=== PATIENT | male | born 1955 | race Caucasian/White ===

== ENCOUNTER 2017-08-16 09:37 | Emergency (ER) | payer OTHER ==
[~2017-08-16] VITALS: Ht 177.8 cm; Wt 127.0 kg
[~2017-08-16 09:37] MED LIST: ATORVASTATIN CA40 MG PO; COUMADIN10 MG PO; ENOXAPARIN120 MG/0.8 SUB-Q; LOVASTATIN40 MG PO; NORCO 7.5-3251 EACH PO; ROBAXIN-750750 MG PO; VITAMIN D-32000 UNIT PO; WARFARIN SODIUM5 MG PO
[2017-08-16] MEDS ORDERED: LOVENOX120 MG SUB-Q (10:35)
== END 2017-08-16 11:09 | disposition home or self-care (01) ==
LOC: ED 09:37
DX: I82.431 Acute embolism and thrombosis of right popliteal vein (principal); Z79.01 Long term (current) use of anticoagulants; Z79.899 Other long term (current) drug therapy
CPT/HCPCS: 93971; 96372; 99284; J1650

== ENCOUNTER 2018-08-19 18:21 | Emergency (ER) | payer OTHER ==
[~2018-08-19] VITALS: Ht 177.8 cm; Wt 125.2 kg
[~2018-08-19 18:21] MED LIST changes: +LOVENOX120 MG SUB-Q
--- OUTSIDE RECORDS SUMMARY | 2018-08-19 18:24 | XMS ---
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 E.D. VISIT COUNT (12 MO.) 1 ARACELI Desai TOTAL 1 NOTE: Visits indicate total known visits. ED/UCC VISIT TRACKING (12 MO.) 08/19/2018 18:22 ARACELI Schwartz [place] TYPE: Emergency COMPLAINT: - POST OP PROBLEM, EXTREMITY PAIN INPATIENT VISIT TRACKING (12 MO.) 08/15/2018 10:25 [facility] TYPE: Orthopedic DIAGNOSES: 0. 02035 LEFT TOTAL KNEE ARTHROPLASTY [email or web address]
[2018-08-19] MEDS ORDERED: ELIQUIS5 MG PO (18:45)
== END 2018-08-19 20:35 | disposition home or self-care (01) ==
LOC: ED 18:21
DX: R29.898 Other symptoms and signs involving the musculoskeletal system (principal); Z79.899 Other long term (current) drug therapy
CPT/HCPCS: 93971; 99285-25

== ENCOUNTER 2020-04-15 06:33 | Day surgery (SDC) | payer OTHER ==
[~2020-04-15] VITALS: Ht 177.8 cm; Wt 118.8 kg
[~2020-04-15 06:33] MED LIST changes: +ELIQUIS5 MG PO
--- NOTE | 2020-04-15 08:10 | NUR ---
04/15/20 0810 Sheela Guallpa 0805- PT TO PACUT IN LL POSITION. EYES OPEN AND ASKING/ANSWERING QUESTIONS APPROPRIATELY. BREATHING EASY AND UNLABORED. SPO2 >95% ON 3 L O2 VIA NC. ETCO2 48. PT EDUCATED ON POC AND ENCOURAGED TO PASS GAS.
--- NOTE | 2020-04-15 13:15 | NUR ---
PT TAKEN FOR SCOPE, DIAMOND WAITING. CONNECTED WITH HER, ALL QUESTIONS ASKED WERE ANSWERED. GAVE BLESSING WILL FOLLOW
--- NOTE | 2020-04-16 06:21 | OR ---
[facility] [address], [place] [address] Signed DATE OF OPERATION: 04/15/2020 SURGEON: Patience Maciel MD PREOPERATIVE DIAGNOSES: 1. Hyperplastic rectal polyps in 2010 at age 54. 2. Maternal grandfather with either stomach or colon cancer in his late 50s or early 60s. POSTOPERATIVE DIAGNOSES: 1. 4 mm polyps x2 at 18 cm (rectosigmoid junction). 2. 4 mm polyps x2, cecum. 3. Minimal sigmoid diverticulosis. 4. Enlarged prostate. PROCEDURE: Colonoscopy with hot biopsy. ESTIMATED BLOOD LOSS: None. INDICATIONS: Andrew is a 64-year-old gentleman asked to see me for a followup colonoscopy. He told me today that his maternal grandfather had either stomach or colon cancer somewhere in his late 50s or early 60s. His brother feels pretty confidently it was colon cancer. Andrew himself had hyperplastic rectal polyps removed back in 2009 at the age of 54. In the meantime, he seems to be doing fine without any lower GI complaints. In the office, I had given him a pamphlet on colonoscopy. He understands the nature of the test along with the risks including, but not limited to gas bloating, crampy abdominal pain, bleeding, perforation requiring surgery, and missed diagnosis. He also recalls the need for IV conscious sedation. We did have him hold his Eliquis prior to the procedure. In that regard, he did receive heparin preoperatively. DESCRIPTION OF PROCEDURE: Andrew was taken into our endoscopy suite and placed in the left lateral decubitus position. He did receive preoperative heparin along with antibiotics because of his history of a DVT and his bilateral knee replacements. He was given a total of 10 mg of Versed and 200 mcg of fentanyl to cover the case. Even then he woke up several times during the procedure as well as at the end of the procedure. Fortunately, it is technically easy to advance the scope for Andrew. Nevertheless, he seemed to do well. A digital rectal exam had been done and he does have an enlarged moderately indurated Electronically Signed By: PATIENCE MACIEL MD 04/16/20 0621 PATIENT NAME: ANDREW PHILLIPS OPERATIVE REPORT DATE OF : 57 REPORT #: [id number] PHYSICIAN: PATIENCE MACIEL MD PCP: WILLIS LANDAVERDE MD REPORT IS CONFIDENTIAL AND NOT TO BE RELEASED WITHOUT AUTHORIZATION [facility] [address], [place] [address] Signed prostate gland. No dominant nodules. The adult colonoscope had been introduced and advanced into the cecum under direct visualization of camera. His prep was quite excellent. It took some extra sedation and abdominal compression in order to advance the scope. The above-mentioned polyps were easily removed with the help of hot biopsy forceps. The scope had been slowly withdrawn and we did see some diverticula on this occasion. They were moderate in size, very few in number, and in the sigmoid colon. Once down in the rectum, the scope had been retroflexed and he has little to no internal hemorrhoid tissue. After this, the gas was suctioned out and the colonoscope removed. Overall, Andrew tolerated the procedure quite well. RECOMMENDATIONS: I will see Andrew back in my office in 7 to 14 days to review his results. If these are hyperplastic polyps, he will probably stay on the 10-year rotation. MD JIMMY Olivo/MODL /[id number] cc: MD Willis Olivo MD Copies: PATIENCE MACIEL MD, LOHITH VEERAPPA MD ~ Electronically Signed By: PATIENCE MACIEL MD 04/16/20 0621 PATIENT NAME: ANDREW PHILLIPS OPERATIVE REPORT DATE OF : 57 REPORT #: [id number] PHYSICIAN: PATIENCE MACIEL MD PCP: WILLIS LANDAVERDE MD REPORT IS CONFIDENTIAL AND NOT TO BE RELEASED WITHOUT AUTHORIZATION
--- NOTE | 2020-04-16 10:56 | PATH ---
[facility] [address] [facility] [place] [place] [address] Signed SPECIMEN(S): A COLON POLYP AT 18 CM SPECIMEN(S): B CECAL POLYP SPECIMEN SOURCE: A. COLON POLYP AT 18 CM B. CECAL POLYP CLINICAL HISTORY: Polyps, family history of ca. Dx: Polyps, sigmoid divertic. Colonoscopy. MICROSCOPIC DESCRIPTION: Histologic sections of all submitted blocks are examined by light microscopy. These findings, together with the gross examination, support the pathologic diagnosis. FINAL PATHOLOGIC DIAGNOSIS: A. Colon, polyp at 18 cm, polypectomy: - Hyperplastic polyp. - Negative for dysplasia or malignancy. B. Colon, cecum, polyp, polypectomy: - Tubular adenoma. - Negative for high-grade dysplasia or malignancy. NAL:cml:C2NR GROSS DESCRIPTION: Two specimens are received in two containers, labeled "RH." A. The specimen, labeled "RH," and designated on the requisition "colon polypectomy at 18 cm," is received in formalin and consists of two fragments of pink-monahan tissue (0.5 x 0.3 x 0.3 cm in aggregate). The specimen is submitted entirely in cassette (A1). B. The specimen, labeled "RH," and designated on the requisition "cecum polypectomy," is received in formalin and consists of two fragments of pink-monahan tissue (0.4 x 0.3 x 0.3 cm in aggregate). The specimen is submitted entirely in cassette (B1). AC (under the direct supervision of a pathologist) The Gross Description was prepared using a voice recognition system. The report was reviewed for accuracy; however, sound-alike word errors, addition and/or deletions may occur. If there is any question about this report, please contact Client Services. PERFORMING LABORATORY: PATIENT NAME: ANDREW PHILLIPS PATHOLOGY DATE OF : 57 REPORT #: [id number] PHYSICIAN: SCOTT ANDRADE PCP: WILLIS LANDAVERDE MD REPORT IS CONFIDENTIAL AND NOT TO BE RELEASED WITHOUT AUTHORIZATION [facility] [address] [place] [address] Signed The technical component was performed by [employer] [facility], [address] [place] [address] (Industrial Roof Plumber: Sowmya Meeks MD; CLIA# [id number]). Professional interpretation [facility], [address] [place] [id number] (CLIA# [id number]). Diagnostician: Azalea Noland MD Pathologist Electronically Signed 04/16/2020 Copies: ~ PATIENT NAME: ANDREW PHILLIPS PATHOLOGY DATE OF : 57 REPORT #: [id number] PHYSICIAN: SCOTT ANDRADE PCP: WILLIS LANDAVERDE MD REPORT IS CONFIDENTIAL AND NOT TO BE RELEASED WITHOUT AUTHORIZATION
== END 2020-04-15 08:50 | disposition home or self-care (01) ==
LOC: DS 06:33 → OPS 06:33 → DS 06:45 → OPS 08:50
PROVIDERS: ATTEND Colon & Rectal Surgery
PROC: 0DBE8ZZ Excision of Large Intestine, Via Natural or Artificial Opening Endoscopic (ICD-10-PCS; 2020-04-15)
PROC: 0DBH8ZZ Excision of Cecum, Via Natural or Artificial Opening Endoscopic (ICD-10-PCS; principal; 2020-04-15 06:45)
DX: D12.0 Benign neoplasm of cecum (principal); K57.30 Diverticulosis of large intestine without perforation or abscess without bleeding; N40.0 Benign prostatic hyperplasia without lower urinary tract symptoms; E78.5 Hyperlipidemia, unspecified; E55.9 Vitamin D deficiency, unspecified; G47.33 Obstructive sleep apnea (adult) (pediatric); Z86.010 Personal history of colon polyps; Z80.0 Family history of malignant neoplasm of digestive organs; Z79.899 Other long term (current) drug therapy; Z79.01 Long term (current) use of anticoagulants; Z86.718 Personal history of other venous thrombosis and embolism
CPT/HCPCS: 99153; G0500; J0690; J1644; J2250; J3010; J7121

== ENCOUNTER 2020-08-08 09:49 | Emergency (ER) | payer OTHER ==
[~2020-08-08] VITALS: Ht 177.8 cm; Wt 125.2 kg
[2020-08-08] MEDS ORDERED: HYDROCODON-ACE1 EA11 PO (13:54)
--- NOTE | 2020-08-08 15:48 | EKG ---
[facility] [address] [facility] [place], [place] [address] Signed Sinus rhythm with 1st degree AV block Otherwise normal ECG No previous ECGs available Confirmed by PHONG DICKSON DO ([id number]) on 08/08/2020 3:48:51 PM Electronically Signed By: PHONG DICKSON DO 08/08/20 1548 PATIENT NAME: ANDREW PHILLIPS Electrocardiogram DATE OF : 57 PHYSICIAN: PHONG DICKSON DO REPORT #: [id number] REPORT IS CONFIDENTIAL AND NOT TO BE RELEASED WITHOUT AUTHORIZATION
== END 2020-08-08 14:04 | disposition home or self-care (01) ==
LOC: ED 09:49
DX: R09.1 Pleurisy (principal); G47.30 Sleep apnea, unspecified; Z79.899 Other long term (current) drug therapy
CPT/HCPCS: 71046; 80053; 84484; 85025; 85379; 93005; 93010; 99285-25; A9270

== ENCOUNTER 2022-06-23 11:53 | Emergency (ER) | payer OTHER ==
[~2022-06-23] VITALS: Ht 177.8 cm; Wt 125.2 kg
[~2022-06-23 11:53] MED LIST changes: +HYDROCODON-ACE1 EA11 PO
[2022-06-23] MEDS ORDERED: CYCLOBENZAPRINE5 MG PO (12:12)
[2022-06-23] MEDS ORDERED: DULOXETINE HCL30 MG PO (12:12)
[2022-06-23] MEDS ORDERED: LIDODERM1 EACH TOP (13:30)
--- NOTE | 2022-06-23 17:54 | EKG ---
[facility] [address] [facility] [place] [address] Signed Sinus rhythm with 1st degree AV block Otherwise normal ECG When compared with ECG of 08-AUG-2020 09:57, Nonspecific T wave abnormality no longer evident in Anterior leads Confirmed by TYSON SELBY MD ([id number]) on 06/23/2022 5:54:21 PM Electronically Signed By: TYSON SELBY MD 06/23/22 1754 PATIENT NAME: ANDREW PHILLIPS LAINE Electrocardiogram DATE OF : 57 PHYSICIAN: TYSON SELBY MD REPORT #: [id number] REPORT IS CONFIDENTIAL AND NOT TO BE RELEASED WITHOUT AUTHORIZATION
== END 2022-06-23 14:21 | disposition home or self-care (01) ==
LOC: ED 11:53
DX: R07.1 Chest pain on breathing (principal); R07.89 Other chest pain; G47.30 Sleep apnea, unspecified; Z79.899 Other long term (current) drug therapy; Z79.01 Long term (current) use of anticoagulants; Z86.711 Personal history of pulmonary embolism
CPT/HCPCS: 36415; 71045; 80053; 83735; 84484; 85025; 85610; 87502; 93005; 93010; 99285-25; U0003

== ENCOUNTER 2025-05-05 14:31 | Inpatient (IN) | payer MEDICARE, OTHER ==
[~2025-05-05] VITALS: Ht 177.8 cm; Wt 112.4 kg
[~2025-05-05 14:31] MED LIST changes: +CYCLOBENZAPRINE5 MG PO; +DULOXETINE HCL30 MG PO; +LIDODERM1 EACH TOP; +MECLIZINE HCL25 MG PO
[2025-05-05 15:43] LABS: BASOPHILS 0.7 % (0.2-1.2); EOSINOPHILS 1.1 % (0.8-7.0); LYMPHOCYTES 27.3 % (21.8-53.1); MCH 30.5 PG (25.7-32.2); MCHC 34.6 g/dL (32.3-36.5); MCV 88.4 fL (79.0-92.2); MONOCYTES 5.9 % (5.3-12.2); NEUTROPHILS 64.6 % (34.0-67.9); RBC 5.50 M/uL (4.63-6.08)
[2025-05-05] MEDS ORDERED: SODIUM CHLORIDE 0.9% 1,000 ML IV ONE (15:45)
[2025-05-05] MEDS ORDERED: HYDROmorphone HCL 1 MG/ML SYR IV ONE ×3 (15:45→17:30)
[2025-05-05 15:56] LABS: ALT (SGPT) 28.0 U/L (14-59); AST (SGOT) 17.0 U/L (15-37); GLOMERULAR FILTRATION RATE,EST 83.0 mL/min (>60); PROTEIN, TOTAL 7.2 g/dL (6.4-8.2); UREA NITROGEN 9.0 mg/dL (7-18)
[2025-05-05] MEDS ORDERED: LIDOCAINE 2% VISCOUS 6 ML SYR TOP ONE (17:15)
[2025-05-05 17:17] LABS: BLOOD/HGB, URINE NEGATIVE (Negative); KETONE, URINE SMALL (Negative); LEUK ESTERASE, URINE NEGATIVE (negative); NITRITE, URINE NEGATIVE (negative)
[2025-05-05] MEDS ORDERED: HYDROmorphone HCL 1 MG/ML SYR IV PRN (18:00)
[2025-05-05] MEDS ORDERED: ACETAMINOPHEN 325 MG TAB PO PRN (18:00)
[2025-05-05] MEDS ORDERED: LACTATED RINGER'S 1,000 ML IV SCH (18:00)
[2025-05-05 18:42] VITALS: BP 156/80
--- NOTE | 2025-05-05 18:53 | NUR ---
THIS RN TO ER, VERBAL REPORT RECEIVED FROM FLOR SENIOR. THIS RN ESCORTS PT FROM ER TO MED-SURG ROOM 113 AT 1835, PT ARRIVES PER BED, TRANSFERS SELF TO BED WITH STEADY GAIT. PT THEN WALKS TO TOILET VOIDS, UNMEASURED. PT BACK TO BED, ORIENTED TO ROOM, CALL LIGHT, BED AND PHONE. VSS. VISITORS X2 AT BEDSIDE. NG IN PLACE TO LIWS. NO REQUESTS AT THIS TIME.
--- NOTE | 2025-05-05 19:28 | NUR ---
RECEIVED REPORT FROM FLOR YANCEY. PATIENT SITTING SEMIFOWLERS IN BED, STATES HE IS COMFORTABLE. RESPIRATIONS EVEN AND UNLABORED. DENIES ANY NEEDS, CALL LIGHT IN REACH
[2025-05-05 20:03] VITALS: BP 135/76
[2025-05-05 20:04] VITALS: BP 135/76
--- NOTE | 2025-05-05 20:06 | NUR ---
IN ROOM TO ASSESS PATIENT, VS OBTAINED AND RECORDED. PATIENT DENIES PAIN, STATES ABD DISTENSION IS MUCH IMPROVED AND HE IS PASSING GAS. BOWEL TONES ARE ACTIVE. PATIENT DENIES ANY FURTHER NEEDS, RESPIRATIONS EVEN AND UNLABORED. CALL LIGHT IN REACH
[2025-05-05] MEDS ORDERED: ENOXAPARIN SODIUM 40 MG/0.4 ML SYR SUB-Q SCH (21:00)
--- NOTE | 2025-05-05 21:06 | NUR ---
SCHEDULED MEDICATION GIVEN TO PATIENT PER ORDER. IV FLUIDS STARTED PER ORDER. PATIENT UP TO RESTROOM TO VOID WITH STABLE GAIT. BACK TO BED WITHOUT DIFFICULTY, NG TUBE SUCTION ON LIWS. PATIENT DENIES PAIN, AT BEDSIDE. DENIES ANY NEEDS, CALL LIGHT IN REACH
--- NOTE | 2025-05-05 22:06 | NUR ---
TC WITH DR. LANE. INFORMED OF PATIENT THROAT DISCOMFORT D/T NG TUBE. PROVIDER STATES OKAY TO HAVE ICE CHIPS FOR COMFORT, AND SPRAY FOR SORE THROAT.
[2025-05-05] MEDS ORDERED: phenoL 177 ML SPRAY MT PRN (22:15)
--- NOTE | 2025-05-05 22:57 | NUR ---
ROUNDED ON PATIENT, PATIENT REPORTING THROAT DISCOMFORT, PRN MEDICATION GIVEN PER ORDER. DENIES FURTHER NEEDS, IVF CONTINUING TO INFUSE PER ORDER. NO FURTHER NEDS, CALL [facility] IN REACH
[2025-05-06] VITALS (11 sets, daily range): BP systolic 117–133; BP diastolic 73–81
--- NOTE | 2025-05-06 01:39 | NUR ---
ROUNDED ON PATIENT, VS OBTAINED AND RECORDED. GIVEN PRN MEDICATION FOR THROAT PAIN, OUTPUT DOCUMENTED. PATIENT UP TO RESTROOM WITH SBA, BACK TO BED WITHOUT DIFFICULTY. NG TUBE ON LIWS. IVF CONTINUING TO INFUSE WITHOUT DIFFICULTY PER ORDER. NO FURTHER NEEDS, CALL LIGHT IN REACH
--- NOTE | 2025-05-06 04:09 | NUR ---
ROUNDED ON PATIENT, PATIENT RESTING WITH EYES CLOSED, RESPIRATIONS EVEN AND UNLABORED. CPOX AT BEDSIDE. NG TUBE IN PLACE, LIWS. NO NEEDS, CALL LIGHT IN REACH
[2025-05-06 05:16] LABS: BASOPHILS 0.6 % (0.2-1.2); EOSINOPHILS 1.6 % (0.8-7.0); LYMPHOCYTES 31.1 % (21.8-53.1); MCH 30.8 PG (25.7-32.2); MCHC 34.4 g/dL (32.3-36.5); MCV 89.3 fL (79.0-92.2); MONOCYTES 6.0 % (5.3-12.2); NEUTROPHILS 60.4 % (34.0-67.9); RBC 5.04 M/uL (4.63-6.08)
[2025-05-06 05:25] LABS: GLOMERULAR FILTRATION RATE,EST 88.0 mL/min (>60); UREA NITROGEN 8.0 mg/dL (7-18)
--- NOTE | 2025-05-06 05:34 | NUR ---
VS OBTAINED AND RECORDED. INTAKE AND OUTPUT DOCUMENTED. PATIENT UP TO RESTROOM TO VOID, BACK TO BED WITHOUT DIFFICULTY. BOWEL TONES AUSCULTATED, ACTIVE BOWEL TONES THROUGHOUT, DENIES TENDERNESS. NG TUBE IN PLACE, LIWS. IVF CONTINUING TO INFUSE WITHOUT DIFFICULTY. NO FURTHER NEEDS, CALL LIGHT IN REACH
--- NOTE | 2025-05-06 06:49 | NUR ---
NEW IVF BAG HUNG PER ORDER. INFUSING WITHOUT DIFFICULTY. PATIENT RESTING IN BED, RESPIRATIONS EVEN AND UNLABORED. NO NEEDS, CALL LIGHT IN REACH
[2025-05-06] MEDS ORDERED: ZEPBOUND10 MG/0.5 SUB-Q (07:23)
[2025-05-06] MEDS ORDERED: ATORVASTATIN CA20 MG PO (07:23)
--- NOTE | 2025-05-06 07:42 | NUR ---
REPORT RECEIVED FROM FLOR BRODERICK. PATIENT IN BED, EYES CLOSED, CHEST RISE EVEN AND UNLABORED. SPOKE WITH MD AUGUSTINE. VERBAL ORDERS RECEIVED TO CLAMP NG TUBE AND REMOVE 4 HOURS AFTER CLAMPING IF PT TOLERATES WELL. MAINTAIN DIET NPO WITH ICE CHIPS FOR COMFORT. NO FURTHER ORDERS AT THIS TIME. CALL LIGHT AND PERSONAL BELONGINGS IN REACH OF PATIENT.
--- NOTE | 2025-05-06 07:50 | NUR ---
NG TUBE CLAMPED PER MD ORDER. PATIENT IN BED, CALL LIGHT AND PERSONAL BELONGINGS IN REACH. PATIENT EDUCATION PROVIDED ON CHANGES TO CARE PLAN REGARDING MD VERBAL ORDER. PATIENT VERBALIZED UNDERSTANDING AND DENIES QUESTIONS OR CONCERNS AT THIS TIME.
--- NOTE | 2025-05-06 09:54 | NUR ---
PATIENT IN BED, DENIES ABDOMINAL TENDERNESS WITH PALPATION, ABDOMEN NON-DISTENDED, BOEWL TONES HYPOACTIVE. MEDICATIONS ADMINISTERED. CALL LIGHT AND PERSONAL BELONGINGS IN REACH. AT BEDSIDE.
--- NOTE | 2025-05-06 09:55 | EKG ---
[facility] [address] [facility] [place] [address] Signed Sinus rhythm with 1st degree AV block Otherwise normal ECG When compared with ECG of 19-AUG-2023 16:44, No significant change was found Confirmed by Mark Lane DO ([id number]) on 05/06/2025 9:55:24 AM Electronically Signed By: MARK LANE DO 05/06/25 0955 PATIENT NAME: ANDREW PHILLIPS LAINE Electrocardiogram DATE OF : 57 PHYSICIAN: MARK LANE DO REPORT #: [id number] REPORT IS CONFIDENTIAL AND NOT TO BE RELEASED WITHOUT AUTHORIZATION
--- NOTE | 2025-05-06 10:18 | NUR ---
PATIENT IN BED AT THIS TIME. VITALS AND I&O'S DONE AND CHARTED. PATIENT DID AM CARE AND ORAL CARE AT SINK. CALL LIGHT IN REACH. NO FURTHER NEEDS AT THIS TIME.
--- NOTE | 2025-05-06 10:26 | NUR ---
UR CLINICAL REVIEW: [facility] [facility] [place]BO WITH NEED FOR NG, IVF AND IV MEDS [facility] INPT 05/05/25 @ 0193 ORDER MATCHES REG CLINICALS FAXED TO [facility] FOR AUTH REVIEW DISCHARGE TO HOME WITH FAMILY WHEN STABLE 05/07/25 DC REVIEW
--- NOTE | 2025-05-06 10:53 | NUR ---
PATIENT IN BED, CALL LIGHT AND PERSONAL BELONGINGS IN REACH. ASSESMENT COMPLETE. AT BEDSIDE. PATIENT DENIES CONCERNS.
--- NOTE | 2025-05-06 11:04 | NUR ---
PATIENT IN BED, CALL LIGHT IN REACH. PATIENT PROVIDED WITH ICE CHIPS.
--- NOTE | 2025-05-06 11:05 | NUR ---
INTO SEE PATIENT. PATIENT PERSONAL HEALTH INFORMATION REVIEWED. PATIENT LIVES WITH AT HOME. COUPLE STEPS INTO THE HOUSE. DENIES DIFFCULTY DOING THEM. PATIENT DOES NOT USE WALKER, CANE OR WHEELCHAIR. CPAP FROM [facility] AT HOME. PATIENT DRIVES. DENIES ANY DIFFCULTY PAYING UTILITES OR OBTAINING FOOD. WILL DRIVE HOME WHEN MEDICALLY CLEARED. NO FUTHER CM NEEDS.
[2025-05-06] MEDS ORDERED: PHARMACY RENAL DOSE ADJUSTMENT 1 DOSE MISC PO SCH (12:00)
--- NOTE | 2025-05-06 12:01 | NUR ---
PATIENT IN BED, AT BEDSIDE. GI ASSESMENT COMPLETE. PATIENT REPORTS ABDOMEN IS NON-DISTENDED. NON-TENDER AND SOFT WITH ABDOMINAL PALPATION. BOWEL TONES ACTIVE. PATIENT DENIES NAUSEA, PAIN, AND FURTHER CONCERNS. PATIENT TOLERATING CLAMPED NG TUBE WELL. NG TUBE REMOVED PER MD ORDER, TIP INTACT, PATIENT TOLERATED WELL. PATIENT PROVIDED WITH ICE CHIPS. CALL LIGHT AND PERSONAL BELONGINGS IN REACH. PATIENT DENIES CONCERNS.
--- NOTE | 2025-05-06 14:07 | NUR ---
PATIENT IN BED, CALL LIGHT AND PERSONAL BELONGINGS IN REACH OF PATIENT. AT BEDSIDE. GI ASSESMENT COMPLETE. PATIENT DENIES PAIN, AND DENIES CONCERNS.
--- NOTE | 2025-05-06 14:19 | NUR ---
PATIENT SITTING UP IN BED, VISITOR IN ROOM. VITALS AND I&O'S DONE AND CHARTED. CALL LIGHT IN REACH. NO FURTHER NEEDS AT THIS TIME.
--- NOTE | 2025-05-06 14:55 | NUR ---
PATIENT IN BED
--- NOTE | 2025-05-06 15:17 | NUR ---
PATIENT IN BED AT THIS TIME. CRUTCHING CONTRACTOR CHARTED HOURLY ROUNDS. CALL LIGHT WITHIN REACH, NO FURTHER NEEDS.
--- NOTE | 2025-05-06 16:12 | NUR ---
PATIENT AMBULATED YU, COMPLETED 10+ LAPS AROUND THE UNIT. PATIENT TOLERATED WELL. PATIENT DENIES CONCERNS. PATIENT IN BED, CALL LIGHT AND PERSONAL BELONGINGS IN REACH OF PATIENT
--- NOTE | 2025-05-06 16:28 | NUR ---
PATIENT IN BED SPEAKING ON CELL PHONE. CALL LIGHT IN REACH
--- NOTE | 2025-05-06 16:54 | NUR ---
PROVIDED PATIENT WITH ICE WATER AND COFFEE AT HIS REQUEST. REVIEWED DIET CHANGE WITH PATIENT. PATIENT VERBALIZED UNDERSTANDING AND DENIES FURTHER QUESTIONS OR CONCERNS AT THIS TIME. CALL LIGHT AND PERSONAL BELONGINGS IN REACH OF PATIENT.
--- NOTE | 2025-05-06 17:07 | NUR ---
medications reconciled using pharmacy records and patient interview
--- NOTE | 2025-05-06 18:05 | NUR ---
PATIENT SITTING AT EDGE OF BED VISITING WITH FAMILY. PATIENT DENIES PAIN/ NAUSEA/ VOMITING/ AND CONCERNS. ABDOMEN SOFT AND NON-TENDER. PATIENT DENIES CONCERNS.
--- NOTE | 2025-05-06 18:30 | NUR ---
PATIENT IN BED AT THIS TIME. WOVEN LABEL DESIGNER CHARTED VITALS AND I&O'S. CALL LIGHT WITHIN REACH, NO FURTHER NEEDS.
--- NOTE | 2025-05-06 18:36 | NUR ---
PATIENT IN BED, CALL LIGHT AND PERSONAL BELONGINGS IN REACH.
--- NOTE | 2025-05-06 20:26 | NUR ---
CALL LIGHT ANSWERED. IV SITE ALARMING, OCCLUSION. IV SITE FLUSHED WNL, BLOOD RETURN NOTED. ICE WATER REFILLED. PRIMARY FLOR CARRENO IN ROOM. VSS.
--- NOTE | 2025-05-06 20:30 | NUR ---
Patient awake, alert and oriented x3, no acute distress. Patient denies pain and or nausea. Patient reports tolerating clear liquids well. Active bowel tones x4 quadrants, pt reports passing flatus, abd soft to light palpation. Vital signs are stable, afebrile. Patient reports he is eager to discharge home. IV site patent, fluids infusing per order. Call light within reach of pt.
--- NOTE | 2025-05-06 22:05 | NUR ---
Hospital CPAP placed by RT per patient request. CPOX placed from sp02 monitoring, sp02 95% on cpap, respirations non labored. Patient denies needs at this time, call light within reach.
--- NOTE | 2025-05-07 00:52 | NUR ---
Patient sleeping in bed, eyes closed, respirations non labored. Sp02 95% on cpap. Call light within reach.
[2025-05-07 05:26] VITALS: BP 124/71
[2025-05-07 05:42] LABS: ALT (SGPT) 23.0 U/L (14-59); AST (SGOT) 11.0 U/L (15-37); GLOMERULAR FILTRATION RATE,EST 88.0 mL/min (>60); PROTEIN, TOTAL 5.9 g/dL (6.4-8.2); UREA NITROGEN 7.0 mg/dL (7-18)
--- NOTE | 2025-05-07 07:24 | NUR ---
REPORT RECEIVED FROM WAI RAY. PATIENT AMBULATING HALL
--- NOTE | 2025-05-07 08:42 | NUR ---
PATIENT IN BED. ASSESMENT COMPLETE. MEDICATIONS ADMINISTERED. BREAKFAST AT BEDSIDE. BOWEL TONES ACTIVE ABDOMINAL PALPATION SOFT AND NON-TENDER. PATIENT DENIES NAUSEA OR PAIN. PATIENT DENIES CONCERNS. CALL LIGHT AND PERSONAL BELONGINGS IN REACH OF PATIENT.
[2025-05-07 09:20] VITALS: BP 131/78
--- NOTE | 2025-05-07 09:21 | NUR ---
HOURLY ROUNDING PATIENT SITTING UP IN BED, SAYS HE WANTS TO GO HOME. NO REQUEST AT THIS TIME. BOARD HAS BEEN UPDATED AND CALL LIGHT HAS BEEN PLACED WITHIN REACH
--- NOTE | 2025-05-07 09:40 | NUR ---
PATIENT SAILINE LOCKED PER ORDER. CALL LIGHT AND PERSONAL BELONGINGS IN REACH. PATIENT IN BED
--- NOTE | 2025-05-07 09:40 | NUR ---
Spoke with James. He denies needs and plans on dc to home today. His will drive him.
--- NOTE | 2025-05-07 10:39 | NUR ---
PATIENT IN BED, CALL LIGHT IN REACH. PATIENT REPORTS HE HAS EATEN OATMEAL, DENIES CONCERNS INCLUDING PAIN AND NAUSEA. PROVIDED PATIENT WITH SANDWICH BOX. PATIENT DENIES CONCERNS. CALL LIGHT AND PERSONAL BELONGINGS IN REACH OF PATIENT.
[2025-05-07 10:40] VITALS: BP 131/78
--- NOTE | 2025-05-07 11:51 | NUR ---
PATIENT IN BED, CALL LIGHT IN REACH
--- NOTE | 2025-05-07 12:11 | NUR ---
PATIENT SITTING UPRIGHT IN CHAIR, AT BEDSIDE. PATIENT BELONGINGS HAVE BEEN COLLECTED BY PATIENT AND . REPORTS SHE WILL BRING PATIENT BELONGINGS HOME WITH HER. PATIENT DENIES CONCERNS AT THIS TIME.
[2025-05-07 12:33] VITALS: BP 126/74
--- NOTE | 2025-05-07 13:10 | NUR ---
PATIENT IN [facility], AT [facility]. CALL LIGHT IN REACH. IV DC'D WNL. CATH INTACT. DISCHARGE TEACHING COMPLETED. PATIENT REFUSES PHARMACY SERVICES. HOME MEDICATIONS REVIEWED BY THIS RN. VITAL SIGNS COMPLETED. PATIENT CONFIRMS HE HAS ALL BELONGINGS INCLUDING KEYS, CLOTHES, WALLET, PHONE AND PUT IN BEAT ADJUSTER. PATIENT OFF UNIT WITH NURSING DORINDA.
== END 2025-05-07 13:20 | disposition home or self-care (01) | DRG 390 ==
LOC: ED 14:31 → MS 17:51
PROVIDERS: Emergency Medicine; ADMIT Student in an Organized Health Care Education/Training Program; ATTEND Student in an Organized Health Care Education/Training Program
PROC: 0D9670Z Drainage of Stomach with Drainage Device, Via Natural or Artificial Opening (ICD-10-PCS; principal; 2025-05-05)
DX: K56.609 Unspecified intestinal obstruction, unspecified as to partial versus complete obstruction (principal); G47.30 Sleep apnea, unspecified; E78.5 Hyperlipidemia, unspecified; E66.01 Morbid (severe) obesity due to excess calories; N20.0 Calculus of kidney; K80.20 Calculus of gallbladder without cholecystitis without obstruction; F12.90 Cannabis use, unspecified, uncomplicated; Z86.718 Personal history of other venous thrombosis and embolism; Z86.711 Personal history of pulmonary embolism; Z96.653 Presence of artificial knee joint, bilateral; Z98.890 Other specified postprocedural states; Z79.01 Long term (current) use of anticoagulants; Z79.899 Other long term (current) drug therapy
CPT/HCPCS: 36415; 74177; 80048; 80053; 81003; 83605; 83690; 83735; 85025; 93005; 93010; 94660; 94762; J1171; J1650; J2405; J7030; J7121